=== PATIENT | male | born 1945 | race Caucasian/White ===

== ENCOUNTER → 2017-08-07 | Outpatient (CLI) | payer MEDICARE, OTHER ==
[~2017-08-07] MED LIST: ATIVAN0.5 MG PO; DYRENIUM100 MG PO; MECLIZINE 25 MG25 M1 PO; NORCO 5-325 TA1 EACH PO; ZOCOR40 MG PO; ZOLOFT 50 MG TA50 M1 PO
== END ==
LOC: M.MRI 10:41
DX: M48.07 Spinal stenosis, lumbosacral region (principal); M51.26 Other intervertebral disc displacement, lumbar region; M51.27 Other intervertebral disc displacement, lumbosacral region